=== PATIENT | male | born 1945 | race Caucasian/White ===

== ENCOUNTER 2024-10-08 09:41 | Day surgery (SDC) | payer OTHER, BC ==
[2024-10-05 17:19] VITALS: BMI 25.7
[2024-10-08] MEDS ORDERED: LACTATED RINGERS SOLUTION 1,000 ML IV SCH (10:15)
[2024-10-08] MEDS ORDERED: MIDAZOLAM HCL 2 MG/2 ML SINGLE DOSE VIAL ONE (11:27)
[2024-10-08] MEDS ORDERED: FENTANYL CITRATE/PF 50 MCG/ML VIAL ONE (11:27)
[2024-10-08] MEDS ORDERED: PROPOFOL 20 ML ONE (11:37)
[2024-10-08] MEDS ORDERED: ACETAMINOPHEN INJECTION 100 ML ONE (11:41)
[2024-10-08 13:00] VITALS: RESP 18; TEMP 97.3
[2024-10-08 14:36] VITALS: BP 112/64; PULSE 62
== END 2024-10-08 14:26 | disposition home or self-care (01) ==
LOC: FASU 09:41
PROVIDERS: ATTEND Urology
PROC: 0VB03ZX Excision of Prostate, Percutaneous Approach, Diagnostic (ICD-10-PCS; principal; 2024-10-08 11:44)
DX: R97.20 Elevated prostate specific antigen [PSA] (principal)
CPT/HCPCS: 82962; 88305-TC; 88341-TC; 88342-TC; 94760; J0131